=== PATIENT | female | born 1940 | race Two or more races ===

== ENCOUNTER 2017-02-05 09:53 | Outpatient (CLI) | payer MEDICARE, BC ==
[2015-09-07 12:02] VITALS: O2SAT 99
== END 2017-02-05 09:54 | disposition home or self-care (01) | DRG 558 ==
LOC: CONVCARE 09:53
PROVIDERS: ATTEND Orthopaedic Surgery
DX: M75.41 Impingement syndrome of right shoulder (principal); I67.1 Cerebral aneurysm, nonruptured; M75.42 Impingement syndrome of left shoulder
CPT/HCPCS: 70544